=== PATIENT | male | born 1935 | race Caucasian/White ===

== ENCOUNTER 2021-04-27 12:15 | Emergency (ER) | payer MEDICARE, SELFPAY ==
--- NOTE | 2021-04-27 12:25 | ED.SKABFB ---
HPI - Skin/Abscess/Foreign Bdy General Chief complaint: Skin/Abscess/Foreign Body Stated complaint: Skin Tear Time Seen by Provider: 04/27/21 12:25 Source: patient, family and RN notes reviewed History of Present Illness HPI narrative: Patient is an 85-year-old male who presents the urgent care with his granddaughter with complaints of a laceration/skin tear to the left forearm. Patient states it just happened approximately 30 minutes ago and they have applied pressure and [place]. Patient states that he was coming out of a doorway and slid down the doorway hitting his arm on the side. Denies of any other injuries or hitting his head. No other acute complaints. No acute distress noted. Patient and granddaughter aware of the plan of care. Some parts of this dictation were generated by voice recognition software and may contain typographical and/or grammatical inaccuracies. Related Data Home Medications Medication Instructions Recorded Confirmed amlodipine 10 mg PO DAILY 04/27/21 04/27/21 atorvastatin 10 mg PO DAILY 04/27/21 04/27/21 docusate sodium [Stool Softener] 50 mg PO DAILY PRN 04/27/21 04/27/21 esomeprazole magnesium [Nexium] 20 mg PO DAILY 04/27/21 04/27/21 loratadine [Claritin] 10 mg PO DAILY 04/27/21 04/27/21 Allergies Allergy/AdvReac Type Severity Reaction Status Date / Time No Known Allergies Allergy Verified 04/27/21 12:47 Review of Systems Review of Systems: CONSTITUTIONAL: Denies fever, chills, or sweats. EYES: Denies visual changes, redness, or discharge. ENT: Denies rhinorrhea, congestion, sore throat, or otalgia. CARDIOVASCULAR: Denies chest pain, palpitations, or edema. RESPIRATORY: Denies cough or dyspnea. GASTROINTESTINAL: Denies abdominal pain, nausea, vomiting, or diarrhea. GENITOURINARY: Denies dysuria or hematuria. SKIN: reports for laceration/skin tear to the left forearm MUSCULOSKELETAL: Denies back pain, joint pain, or myalgia. NEUROLOGIC: Denies headache, numbness, or weakness. All other systems reviewed are negative, except as documented in HPI. PMFSH Comments At the time of my signature, I reviewed and agree with the nursing past medical, surgical, social, and family history. There is no relevant family history pertinent to the patient complaint. Exam Narrative: GENERAL: This is a well-nourished, well-developed patient, in no apparent distress. HEAD: normocephalic, atraumatic. EYES: PERRL. Sclera clear/white. Vision is grossly intact. EARS: External ears normal NOSE: External nose normal with no obvious nasal discharge, nares without redness, no rhinorrhea. THROAT: Mucous membranes moist NECK: Neck supple CARDIOVASCULAR: Regular rate and rhythm without murmurs, gallops, or rubs. RESPIRATORY: Clear to auscultation. Breath sounds equal bilaterally. No wheezes, rales, or rhonchi. SKIN: 5 x 3 open skin tear to the left forearm NEURO: awake, alert, and oriented to person, place and time. There were no obvious focal neurologic abnormalities. EXTREMITIES: No clubbing, cyanosis, or edema. Course Vital Signs Vital signs: Vital Signs Temperature 98.7 F 04/27/21 12:30 Pulse Rate 89 04/27/21 12:30 Respiratory Rate 20 04/27/21 12:30 Blood Pressure 144/79 H 04/27/21 12:30 Pulse Oximetry 97 04/27/21 12:30 Temperature 98.7 F 04/27/21 12:30 Pulse Rate 89 04/27/21 12:30 Respiratory Rate 20 04/27/21 12:30 Blood Pressure 144/79 H 04/27/21 12:30 Pulse Oximetry 97 04/27/21 12:30 Reviewed-patient is informed that they may have pre-hypertension or hypertension based on a blood pressure reading in the department. I recommend the patient call the primary care provider listed on their discharge instructions or a physician of their choice this week to arrange follow-up for further evaluation of possible pre-hypertension or hypertension. Procedures Laceration Laceration 1: Site: upper extremity Side (If applicable): left Description: flap De
[2021-04-27 12:30] VITALS: BP 144/79; PULSE 89; RESP 20; TEMP 37.1; O2SAT 97
== END 2021-04-27 13:05 | disposition home or self-care (01) ==
PROVIDERS: Emergency Provider Nurse Practitioner Family
DX: S51.802A Unspecified open wound of left forearm, initial encounter (principal); W22.09XA Striking against other stationary object, initial encounter; E78.00 Pure hypercholesterolemia, unspecified; J44.9 Chronic obstructive pulmonary disease, unspecified; K21.9 Gastro-esophageal reflux disease without esophagitis; Z85.038 Personal history of other malignant neoplasm of large intestine; M19.90 Unspecified osteoarthritis, unspecified site; Z85.828 Personal history of other malignant neoplasm of skin; Z92.21 Personal history of antineoplastic chemotherapy
CPT/HCPCS: 99212; G0463

== ENCOUNTER 2021-05-31 15:19 | Emergency (ER) | payer MEDICARE, SELFPAY ==
[2021-05-31 15:26] VITALS: BP 153/84; PULSE 90; RESP 20; TEMP 36.6; O2SAT 100
--- NOTE | 2021-05-31 15:29 | ED.SKABFB ---
HPI - Skin/Abscess/Foreign Bdy General Chief complaint: Skin/Abscess/Foreign Body Stated complaint: Skin Sore/ Left Arm Time Seen by Provider: 05/31/21 15:29 Source: patient and RN notes reviewed History of Present Illness HPI narrative: Patient is an 85-year-old male who presents the urgent care with complaints of left arm skin sore. Patient was seen a few weeks ago for a large skin tear after hitting up against a door jam. Patient states the Steri-Strips fell off this past Friday and he has been taking very good care of the area. Patient states that there is now 2 raised areas that sometimes bleed whenever he hits them . No other acute complaints. No acute distress noted. Patient read the plan of care. Some parts of this dictation were generated by voice recognition software and may contain typographical and/or grammatical inaccuracies. Related Data Home Medications Medication Instructions Recorded Confirmed amlodipine 10 mg PO DAILY 04/27/21 04/27/21 atorvastatin 10 mg PO DAILY 04/27/21 04/27/21 docusate sodium [Stool Softener] 50 mg PO DAILY PRN 04/27/21 04/27/21 esomeprazole magnesium [Nexium] 20 mg PO DAILY 04/27/21 04/27/21 loratadine [Claritin] 10 mg PO DAILY 04/27/21 04/27/21 Allergies Allergy/AdvReac Type Severity Reaction Status Date / Time No Known Allergies Allergy Verified 05/31/21 15:37 Review of Systems Review of Systems: CONSTITUTIONAL: Denies fever, chills, or sweats. EYES: Denies visual changes, redness, or discharge. ENT: Denies rhinorrhea, congestion, sore throat, or otalgia. CARDIOVASCULAR: Denies chest pain, palpitations, or edema. RESPIRATORY: Denies cough or dyspnea. GASTROINTESTINAL: Denies abdominal pain, nausea, vomiting, or diarrhea. GENITOURINARY: Denies dysuria or hematuria. SKIN: Reports of raised skin areas over a skin tear of the left elbow MUSCULOSKELETAL: Denies back pain, joint pain, or myalgia. NEUROLOGIC: Denies headache, numbness, or weakness. All other systems reviewed are negative, except as documented in HPI. PMFSH Comments At the time of my signature, I reviewed and agree with the nursing past medical, surgical, social, and family history. There is no relevant family history pertinent to the patient complaint. Exam Narrative: GENERAL: This is a well-nourished, well-developed patient, in no apparent distress. HEAD: normocephalic, atraumatic. EYES: PERRL. Sclera clear/white. Vision is grossly intact. EARS: External ears normal NOSE: External nose normal with no obvious nasal discharge, nares without redness, no rhinorrhea. THROAT: Mucous membranes moist NECK: Neck supple CARDIOVASCULAR: Regular rate and rhythm without murmurs, gallops, or rubs. RESPIRATORY: Clear to auscultation. Breath sounds equal bilaterally. No wheezes, rales, or rhonchi. SKIN: 0.25 cm raised keloid scarring over a nonopen/healed skin tear to the left elbow. Warm, intact with no suspicious lesions or rash, good texture and turgor. NEURO: awake, alert, and oriented to person, place and time. There were no obvious focal neurologic abnormalities. EXTREMITIES: No clubbing, cyanosis, or edema. Course Vital Signs Vital signs: Vital Signs Temperature 97.8 F 05/31/21 15:26 Pulse Rate 90 05/31/21 15:26 Respiratory Rate 20 05/31/21 15:26 Blood Pressure 153/84 H 05/31/21 15:26 Pulse Oximetry 100 05/31/21 15:26 Temperature 97.8 F 05/31/21 15:26 Pulse Rate 90 05/31/21 15:26 Respiratory Rate 20 05/31/21 15:26 Blood Pressure 153/84 H 05/31/21 15:26 Pulse Oximetry 100 05/31/21 15:26 Reviewed-patient is informed that they may have pre-hypertension or hypertension based on a blood pressure reading in the department. I recommend the patient call the primary care provider listed on their discharge instructions or a physician of their choice this week to arrange follow-up for further evaluation of possible pre-hypertension or hypertension. MDM - Skin/Abscess/Foreign Bdy MDM [facility]
== END 2021-05-31 15:58 | disposition home or self-care (01) ==
PROVIDERS: Emergency Provider Nurse Practitioner Family
DX: L91.0 Hypertrophic scar (principal); E78.00 Pure hypercholesterolemia, unspecified; J44.9 Chronic obstructive pulmonary disease, unspecified; K21.9 Gastro-esophageal reflux disease without esophagitis; M19.90 Unspecified osteoarthritis, unspecified site; Z85.038 Personal history of other malignant neoplasm of large intestine; Z85.828 Personal history of other malignant neoplasm of skin; Z92.21 Personal history of antineoplastic chemotherapy
CPT/HCPCS: 99211; G0463